=== PATIENT | female | born 1975 | race Caucasian/White ===

== ENCOUNTER 2018-06-07 10:30 | Inpatient (IN) | payer OTHER ==
[~2018-06-07] VITALS: Ht 152.4 cm; Wt 67.7 kg
[2018-06-13] VITALS (30 sets, daily range): BP systolic 120–154; BP diastolic 67–86; PULSE 76–111; RESP 9–79; Ht 152.4 cm; Wt 67.7 kg
[2018-06-13] MEDS ORDERED: SUCCINYLCHOLINE CHLORIDE 100 MG/5 ML SYG IV ONE (07:00)
[2018-06-13] MEDS ORDERED: CEFAZOLIN 2 GM/50 ML (PMX) 50 ML IVPB ONE (10:00)
[2018-06-13] MEDS ORDERED: LACTATED RINGER'S 1,000 ML IV* ONE (10:00)
[2018-06-13] MEDS ORDERED: CYCL10TA7 PO (10:50)
[2018-06-13] MEDS ORDERED: GABA100C14 PO (10:50)
[2018-06-13] MEDS ORDERED: HYDR-4011 PO (10:50)
[2018-06-13] MEDS ORDERED: POLYMYXIN/BACITRACIN 1L IRRIG ONE (11:23)
[2018-06-13] MEDS ORDERED: GELATIN SIZE 100 SPONGE ONE (11:29)
[2018-06-13] MEDS ORDERED: THROMBIN (BOVINE) 5,000 UNIT VIAL TP ONE (11:29)
[2018-06-13] MEDS ORDERED: SURGIFOAM POWDER 1 GM KIT ONE (11:29)
[2018-06-13] MEDS ORDERED: BUPIVACAINE 0.5%/EPI (SDV) 30 ML INJ ONE (11:30)
--- NOTE | 2018-06-13 12:02 | HPN ---
Date/Time of Note Date/Time of Note DATE: 06/13/18 TIME: 12:02 Interval H&P Admission Note Pt. seen H&P reviewed: No system changes BRIANDA NARVAEZ MD Jun 13, 2018 12:02
[2018-06-13] MEDS ORDERED: NALOXONE (0.4 MG/ML) INJ IV PRN (12:30)
[2018-06-13] MEDS ORDERED: CYCLOBENZAPRINE 10 MG TAB PO PRN (12:30)
[2018-06-13] MEDS ORDERED: ACETAMINOPHEN 325 MG TAB PO PRN (12:30)
[2018-06-13] MEDS: CEFAZOLIN 1 GM/50 ML (PMX) 50 ML IVPB SCH ×2 (12:30→21:41)
[2018-06-13] MEDS ORDERED: DIPHENHYDRAMINE 25 MG CAP PO PRN (12:30)
[2018-06-13] MEDS ORDERED: MAGNESIUM HYDROXIDE 30ML CUP PO PRN (12:30)
[2018-06-13] MEDS ORDERED: BISACODYL 10 MG SUPP PR PRN (12:30)
[2018-06-13] MEDS ORDERED: CEPASTAT LOZENGE MT PRN (12:30)
[2018-06-13] MEDS ORDERED: HYDROmorphONE 0.5 MG/0.5 ML SYG IV PRN (12:30)
[2018-06-13] MEDS ORDERED: HYDROmorphONE 0.2 MG/ML PCA IV SCH (12:30)
--- NOTE | 2018-06-13 12:34 | PREAC ---
Date/Time of Note Date/Time of Note DATE: 06/13/18 TIME: 12:33 Anesthesia Eval and Record Evaluation Time Pre-Procedure Interview DATE: 06/13/18 TIME: 12:33 Age 43 Sex female NPO: 8 hrs Preoperative diagnosis C-5C6 DISK HERNIATION Planned procedure C5C6 DISKECTOMY Past Medical History Past Medical History: Includes GI: GERD Heme: Anemia Surgery & Anesthesia Issues No known issue Meds Anticoagulation: No Beta Ramirez within 24 hr: No Reason Beta Ramirez not given: Pt. not on B-Ramirez Reported Medications Gabapentin* (Gabapentin*) 100 Mg Capsule, 100 MG PO QHS, #90 CAP 06/13/18 Cyclobenzaprine Hcl* (Cyclobenzaprine Hcl*) 10 Mg Tablet, 10 MG PO QHS, #60 TAB 06/13/18 Hydrocodone/Acetaminophen ([place] 5-325 Tablet) 1 Each Tablet, 1 EACH PO DAILY PRN for SEVERE PAIN LEVEL 7-10, TAB 06/13/18 Current Medications Potassium Chloride/Dextrose/ Sod Cl 1,000 ml @ 100 mls/hr Q10H IV ; Start 06/13/18 at 12:03 Acetaminophen/ Hydrocodone Bitart ([place] (10/325)) 1 tab Q4H PRN PO .PAIN 1-5; Start 06/14/18 at 09:30 Acetaminophen/ Hydrocodone Bitart ([place] (10/325)) 2 tab Q4H PRN PO .PAIN 6-10; Start 06/14/18 at 09:30 Hydromorphone HCl (Dilaudid) 0.2 mg Q1H PRN IV .BREAKTHROUGH PAIN; Start 06/13/18 at 12:30 Cefazolin Sodium 50 ml @ 100 mls/hr Q8H IVPB ; Start 06/13/18 at 12:30; Stop 06/14/18 at 04:59 Ondansetron HCl (Zofran Inj) 4 mg Q6H PRN IV NAUSEA/VOMITING; Start 06/13/18 at 12:30 Bisacodyl (Dulcolax Supp) 10 mg DAILY PRN [place] .CONSTIPATION; Start 06/13/18 at 12:30 Docusate Sodium (Colace) 100 mg BID PO ; Start 06/13/18 at 21:00 Magnesium Hydroxide (Milk Of Mag) 30 ml HS PRN PO .CONSTIPATION/DYSPEPSIA; Start 06/13/18 at 12:30 Acetaminophen (Tylenol Tab) 650 mg Q4H PRN PO CRA[place]ORD OR TEMP GREATER THAN 101.3F; Start 06/13/18 at 12:30 Cyclobenzaprine HCl (Flexeril) 10 mg TID PRN PO .MUSCLE SPASMS; Start 06/13/18 at 12:30 Phenol (Cepastat Lozenge) 1 lozenge PRN PRN [place] .SORE THROAT; Start 06/13/18 at 12:30 Diphenhydramine HCl (Benadryl) 25 mg Q6H PRN PO .ITCHING; Start 06/13/18 at 12 :30 Naloxone HCl (Narcan) 0.2 mg Q2M PRN IV .RR 8 BREATHS/MIN OR LESS; Start 06/13/18 at 12:30 Hydromorphone HCl (Dilaudid MANGLE ROLL OPERATOR) MANGLE ROLL OPERATOR to be started in PACU Q4PCA IV ; Start 06/13/18 at 12:30; Stop 06/14/18 at 10:00 Miscellaneous Information 1. Hold MANGLE ROLL OPERATOR at 1,000... MANGLE ROLL OPERATOR IV ; Start 06/13/18 at 12:30; Stop 06/14/18 at 10:00 Gabapentin (Neurontin) 300 mg TID PO ; Start 06/13/18 at 13:00 Meds reviewed: Yes Allergies Coded Allergies: ibuprofen (Verified Allergy, Unknown, rash, 01/21/16) Allergies Reviewed: Yes Labs/Studies Labs Reviewed: Reviewed by anesthesiologist test: Negative Pre-procedure Exam Last vitals Vital Signs Date Temp Pulse Resp B/P (MAP) Pulse Ox O2 O2 Flow FiO2 Time Delivery Rate 06/13/18 97.9 76 16 120/72 98 Room Air 11:18 (88) Airway: Adequate mouth opening, Adequate thyromental dist Mallampati: Mallampati III Teeth: Normal Lung: Normal Heart: Normal ASA Physical Status ASA physical status: 2 Emergency: None Pre-operative Attestations Prior to commencing anesthesia and surgery, the patient was re-evaluated, there was verification of: *The patient's identity *The results of appropriate recent lab work and preoperative vital signs *The above evaluation not changing prior to induction *Anesthetic plan, risk benefits, alternative and complications discussed with patient/family; questions answered; patient/family understands, accepts and wishes to proceed. ERNESTINE RIVERS DO Jun 13, 2018 12:34
[2018-06-13] MEDS ORDERED: LIDOCAINE 1% (MDV) 20 ML INJ ONE (12:37)
[2018-06-13] MEDS ORDERED: PROPOFOL 20 ML ONE (12:37)
[2018-06-13] MEDS ORDERED: MIDAZOLAM 1 MG/ML 2 ML INJ ONE (12:37)
[2018-06-13] MEDS ORDERED: ONDANSETRON 4 MG INJ ONE (12:49)
[2018-06-13] MEDS ORDERED: DEXAMETHASONE 4 MG/ML 5 ML INJ ONE (12:49)
[2018-06-13] MEDS ORDERED: CEFAZOLIN 1 GM INJ ONE (12:49)
[2018-06-13] MEDS: GABAPENTIN 300 MG CAP PO SCH ×2 (13:00→21:41)
[2018-06-13] MEDS ORDERED: ROCURONIUM 50 MG INJ ONE (13:04)
[2018-06-13] MEDS ORDERED: SUGAMMADEX SODIUM 200 MG/2 ML VIAL IV ONE (14:35)
--- NOTE | 2018-06-13 14:49 | SIPON ---
Date/Time of Note Date/Time of Note DATE: 06/13/18 TIME: 14:48 Operative Report Preoperative Diagnosis C5-6 disc herniation Postoperative Diagnosis C5-6 disc herniation Operation/Procedure Performed C5-6 disc arthroplasty Surgeon see signature line learning support assistant Guillermina Shahid Anesthesia: general Estimated blood loss: 10 - 50 ml's Transfusion Required none Specimen Disc Grafts/Implants The Prodisc Complications none BRIANDA NARVAEZ MD Jun 13, 2018 14:49
--- NOTE | 2018-06-13 14:57 | PAC ---
Date/Time of Note Date/Time of Note DATE: 06/13/18 TIME: 14:54 Post-Anesthesia Notes Post-Anesthesia Note Last documented vital signs Vital Signs Date Temp Pulse Resp B/P (MAP) Pulse Ox O2 O2 Flow FiO2 Time Delivery Rate 06/13/18 98 81 16 111/65 98 Room Air 1457 Activity: WNL Respiratory function: WNL Cardiovascular function: WNL Mental status: Baseline Pain reasonably controlled: Yes Hydration appropriate: Yes Nausea/Vomiting absent: Yes ERNESTINE RIVERS DO Jun 13, 2018 14:57
[2018-06-13] MEDS ORDERED: HYDROmorphONE 1 MG/5 ML IV SYRINGE IV ONE (15:01)
[2018-06-13] MEDS: HYDROmorphONE 1 MG/5 ML IV SYRINGE IV PRN ×6 (15:05→16:15)
[2018-06-13] MEDS ORDERED: METOCLOPRAMIDE 10 MG INJ IV PRN (15:30)
[2018-06-13] MEDS: ONDANSETRON 4 MG INJ IV PRN ×2 (15:38→15:56)
--- NOTE | 2018-06-13 15:55 | CONS ---
Assessment/Plan Assessment/Plan Assessment/Plan (Daily) Consult dict 1-Post op cx laminectomy with prior hx lumbar laminectomy 2-Hx anemia 3-Hx GERD Will follow Consultation Date/Type/Reason Admit Date/Time Jun 13, 2018 at 10:27 Date/Time of Note DATE: 06/13/18 TIME: 15:54 Past Medical History Home Meds Reported Medications Gabapentin* (Gabapentin*) 100 Mg Capsule, 100 MG PO QHS, #90 CAP 06/13/18 Cyclobenzaprine Hcl* (Cyclobenzaprine Hcl*) 10 Mg Tablet, 10 MG PO QHS, #60 TAB 06/13/18 Hydrocodone/Acetaminophen ([place] 5-325 Tablet) 1 Each Tablet, 1 EACH PO DAILY PRN for SEVERE PAIN LEVEL 7-10, TAB 06/13/18 Medications Current Medications Potassium Chloride/Dextrose/ Sod Cl 1,000 ml @ 100 mls/hr Q10H IV ; Start 06/13/18 at 12:03 Acetaminophen/ Hydrocodone Bitart ([place] (10/325)) 1 tab Q4H PRN PO .PAIN 1-5; Start 06/14/18 at 09:30 Acetaminophen/ Hydrocodone Bitart ([place] (10/325)) 2 tab Q4H PRN PO .PAIN 6-10; Start 06/14/18 at 09:30 Hydromorphone HCl (Dilaudid) 0.2 mg Q1H PRN IV .BREAKTHROUGH PAIN; Start 06/13/18 at 12:30 Cefazolin Sodium 50 ml @ 100 mls/hr Q8H IVPB ; Start 06/13/18 at 12:30; Stop 06/14/18 at 04:59 Ondansetron HCl (Zofran Inj) 4 mg Q6H PRN IV NAUSEA/VOMITING; Start 06/13/18 at 12:30 Bisacodyl (Dulcolax Supp) 10 mg DAILY PRN [place] .CONSTIPATION; Start 06/13/18 at 12:30 Docusate Sodium (Colace) 100 mg BID PO ; Start 06/13/18 at 21:00 Magnesium Hydroxide (Milk Of Mag) 30 ml HS PRN PO .CONSTIPATION/DYSPEPSIA; Start 06/13/18 at 12:30 Acetaminophen (Tylenol Tab) 650 mg Q4H PRN PO [place]RAWFORD OR TEMP GREATER THAN 101.3F; Start 06/13/18 at 12:30 Cyclobenzaprine HCl (Flexeril) 10 mg TID PRN PO .MUSCLE SPASMS; Start 06/13/18 at 12:30 Phenol (Cepastat Lozenge) 1 lozenge PRN PRN [place] .SORE THROAT; Start 06/13/18 at 12:30 Diphenhydramine HCl (Benadryl) 25 mg Q6H PRN PO .ITCHING; Start 06/13/18 at 12:30 Naloxone HCl (Narcan) 0.2 mg Q2M PRN IV .RR 8 BREATHS/MIN OR LESS; Start 06/13/18 at 12:30 Hydromorphone HCl (Dilaudid CHICKEN HANGER) CHICKEN HANGER to be started in PACU Q4PCA IV Last administered on 06/13/18at 15:17; Admin Dose 6 MG; Start 06/13/18 at 12:30; Stop 06/14/18 at 10:00 Miscellaneous Information 1. Hold CHICKEN HANGER at 1,000... CHICKEN HANGER IV ; Start 06/13/18 at 12:30; Stop 06/14/18 at 10:00 Gabapentin (Neurontin) 300 mg TID PO ; Start 06/13/18 at 13:00 Hydromorphone HCl (Dilaudid) 0.2 mg PACU PRN IV MILD PAIN 1-3 Last administered on 06/13/18at 15:22; Admin Dose 0.2 MG; Start 06/13/18 at 13:00; Stop 06/13/18 at 19:00 Hydromorphone HCl (Dilaudid) 0.4 mg PACU PRN IV MOD PAIN 4-6 Last administered on 06/13/18at 15:41; Admin Dose 0.4 MG; Start 06/13/18 at 13:00; Stop 06/13/18 at 19:00 Ondansetron HCl (Zofran Inj) 4 mg PACU ORDER PRN IV NAUSEA/VOMITING Last administered on 06/13/18at 15:38; Admin Dose 4 MG; Start 06/13/18 at 15:30; Stop 06/13/18 at 22:00 Metoclopramide HCl (Reglan) 10 mg PACU ORDER PRN IV NAUSEA/VOMITING; Start 06/13/18 at 15:30; Stop 06/13/18 at 22:00 Allergies: Coded Allergies: ibuprofen (Verified Allergy, Unknown, rash, 01/21/16) Social History Smoking Status: Never smoker Exam/Review of Systems Exam Vitals Vital Signs Date Temp Pulse Resp B/P (MAP) Pulse Ox O2 O2 Flow FiO2 Time Delivery Rate 06/13/18 98.0 14:54 06/13/18 76 16 120/72 98 Room Air 11:18 (88) Medications Medication Current Medications Potassium Chloride/Dextrose/ Sod Cl 1,000 ml @ 100 mls/hr Q10H IV ; Start 06/13/18 at 12:03 Acetaminophen/ Hydrocodone Bitart ([place] ()) 1 tab Q4H PRN PO .PAIN 1-5; Start 06/14/18 at 09:30 Acetaminophen/ Hydrocodone Bitart ([place] ()) 2 tab Q4H PRN PO .PAIN 6-10; Start 06/14/18 at 09:30 Hydromorphone HCl (Dilaudid) 0.2 mg Q1H PRN IV .BREAKTHROUGH PAIN; Start 06/13/18 at 12:30 Cefazolin Sodium 50 ml @ 100 mls/hr Q8H IVPB ; Start 06/13/18 at 12:30; Stop 06/14/18 at 04:59 Ondansetron HCl (Zofran Inj) 4 mg Q6H PRN IV NAUSEA/VOMITING; Start 06/13/18 at 12:30 Bisacodyl (Dulcolax Supp) 10 mg DAILY PRN [place] .CONSTIPATION; Start 06/13/18 at 12:30 Docusate Sodium (Colace) 100 mg BID PO ; Start 06/13/18 at 21:00 Magnesium Hydroxide (Milk Of Mag) 30 ml HS PRN PO .CONSTIPATION/DYSPEPSIA; Start 06/13/18 at 12:30 Acetaminophen (Tylenol Tab) 650 mg Q4H PRN PO [place] OR TEMP GREATER THAN 101.3F; Start 06/13/18 at 12:30 Cyclobenzaprine HCl (Flexeril) 10 mg TID PRN PO .MUSCLE SPASMS; Start 06/13/18 at 12:30 Phenol (Cepastat Lozenge) 1 lozenge PRN PRN [place] .SORE THROAT; Start 06/13/18 at 12:30 Diphenhydramine HCl (Benadryl) 25 mg Q6H PRN PO .ITCHING; Start 06/13/18 at 12:30 Naloxone HCl (Narcan) 0.2 mg Q2M PRN IV .RR 8 BREATHS/MIN OR LESS; Start 06/13/18 at 12:30 Hydromorphone HCl (Dilaudid CHICKEN HANGER) CHICKEN HANGER to be started in PACU Q4PCA IV Last administered on 06/13/18 15:17; Admin Dose 6 MG; Start 06/13/18 at 12:30; Stop 06/14/18 at 10:00 Miscellaneous Information 1. Hold CHICKEN HANGER at 1,000... CHICKEN HANGER IV ; Start 06/13/18 at 12:30; Stop 06/14/18 at 10:00 Gabapentin (Neurontin) 300 mg TID PO ; Start 06/13/18 at 13:00 Hydromorphone HCl (Dilaudid) 0.2 mg PACU PRN IV MILD PAIN 1-3 Last administered on 06/13/18 15:22; Admin Dose 0.2 MG; Start 06/13/18 at 13:00; Stop 06/13/18 at 19:00 Hydromorphone HCl (Dilaudid) 0.4 mg PACU PRN IV MOD PAIN 4-6 Last administered on 06/13/18 15:41; Admin Dose 0.4 MG; Start 06/13/18 at 13:00; Stop 06/13/18 at 19:00 Ondansetron HCl (Zofran Inj) 4 mg PACU ORDER PRN IV NAUSEA/VOMITING Last adm inistered on 06/13/18 15:38; Admin Dose 4 MG; Start 06/13/18 at 15:30; Stop 06/13/18 at 22:00 Metoclopramide HCl (Reglan) 10 mg PACU ORDER PRN IV NAUSEA/VOMITING; Start 06/13/18 at 15:30; Stop 06/13/18 at 22:00 LG KING MD Jun 13, 2018 15:55
--- NOTE | 2018-06-13 15:55 | OPR ---
DATE OF OPERATION: 06/13/2018 PREOPERATIVE DIAGNOSIS: C5-C6 disk herniation with radiculopathy. POSTOPERATIVE DIAGNOSIS: C5-C6 disk herniation with radiculopathy. PROCEDURE: 1. C5-6 anterior cervical decompression with placement of total disk arthroplasty. 2. Use of operative microscope. 3. Use of C-arm fluoroscopy with interpretation without radiologist present. 4. Intraoperative neuromonitoring. IMPLANT: Synthes large 5 mm ProDisc cervical. PRIMARY SURGEON: Mahendra Patino MD ROUSTABOUT SUPERVISOR: Maryellen Grey PA-C NEED FOR STUDIO COUCH FRAME BUILDER: During this spinal surgical procedure, my data analysis assistant was used to retract and protect the spinal nerves and dural sac. My data analysis assistant also employed the suction catheters to ev acuate blood from the surgical field to improve visualization of the neural structures. The assistan t was medically necessary to facilitate the completion of the surgery in a safe and expeditious [facility] r. [facility] regulations, as well as hospital bylaws, preclude the use of non-licensed [facility] care personnel, such as operating room technicians, to perform these functions. FINDINGS: Neuromonitoring at the start of the case revealed left C5 amplitude down 50%, right C5 caroline n 20%, left C6 down 30%, right C6 down 20%. At the end of the case, nerve signals returned to normal . ESTIMATED BLOOD LOSS: 30 mL DRAINS: None. SPECIMEN: C5-6 disk. COMPLICATIONS OF PROCEDURE: None. ANESTHESIOLOGIST: Rowdy Castro DO TYPE OF ANESTHESIA: General. INDICATION FOR PROCEDURE: This is a 43-year-old female with cervical radiculopathy in the setting of herniation at the C5-C6 level. She failed nonoperative measures. Therefore, it was recommend that she undergo the above procedure. Preoperatively, we discussed risks, benefits and alternatives. She understood and wished to proceed. DESCRIPTION OF PROCEDURE IN DETAIL: The patient was identified in the preoperative holding area, giv en Ancef antibiotic, taken to the operating room where she was successfully placed under general anes thesia. Neuromonitoring leads were placed. Sequential compression devices were applied. Remote int raoperative neuromonitoring was performed by Dr. Scott from 12:00 until 2:37 to include SSEP, MEP and EMG, performed by [employer]. Cut time was 1:17. The patient was placed in the operating room table in the supine position. Towel rolls were placed behind the neck and the neck was extende d. Neck was prepped and draped in the usual sterile fashion. Left-sided neck incision was made. Platysma was incised in line with the skin incision. I then iden tified the interval between the sternocleidomastoid and strap muscles and identified the anterior spi ne. Spinal needle was placed and lateral localizing films obtained to confirm the correct level. On ce this was confirmed, the microscope was brought in. The longus colli musculature was subperiosteal ly dissected. Self-retaining retractors were placed. Anesthesiologist deflated and reinflated the c uff. [place] pins were placed. Annulotomy was performed. Radical diskectomy was performed. I decom pressed the spinal cord and neural foramina bilaterally. Once this was done, I placed various trials and chose the appropriate graft height. I took the trial and made the keel cuts. Once this was don e, I took the final total disk arthroplasty implant and impacted this into the appropriate position. I then removed the [place] pins and placed bone wax into the holes. Hemostasis was achieved. The wound was irrigated. Wound was dry and, therefore, I elected not to place a drain. Microscope w as taken off the field. I took final AP and lateral images and I was happy with the placement of the hardware. I then closed the platysma with a running 2-0 Vicryl stitch and a 3-0 Vicryl subcutaneous closure for the skin. Dermabond was then applied. The patient was then awakened from anesthesia an d taken to the recovery room in stable condition. Lap, sponge and instrument counts were correct x2. There were no apparent complications during the procedure. PLAN: The patient will be admitted to the orthopedic crain for routine postoperative care to include pain control, neurovascular checks, antibiotics and physical therapy. Dictated By: MAHENDRA DAVILA/ROSALVA Conf#: [id number] DID#: [id number]
--- NOTE | 2018-06-13 16:17 | CONS ---
DATE OF ADMISSION: 06/13/2018 DATE OF CONSULTATION: 06/13/2018 TYPE OF CONSULTATION: Medical postop. Thank you very much for allowing me to evaluate this 43-year-old female who just underwent C5-C6 ante rior decompression and diskectomy earlier today. HISTORICAL EVENTS: As you well know, this patient has had a long history of neck pain and radicular arm pain bilaterally. A trial of an epidural injection was deferred by her insurance company. Becau se of continued pain, she elected to ultimately proceed with surgery, which was initially scheduled i n 08/2017 but because of anemia was delayed. Importantly, she also has low back pain with L4-L5-S1 a ntecedent diskectomy with improvement in her left leg pain. PAST MEDICAL HISTORY: Unrevealing. No history of diabetes, heart disease or hypertension. SOCIAL HISTORY: She does not smoke, does not drink. MEDICATIONS: 1. Prior to admission include Flexeril p.r.n. 2. [place]. 3. Gabapentin 300 t.i.d. and herbal medicine. PHYSICAL EXAMINATION: GENERAL: Comfortable appearing female in no acute distress. VITAL SIGNS: BP 128/80, pulse 72, respirations were 18. She was afebrile. EYES: Extraocular muscles were full. NOSE, MOUTH, AND THROAT: Normal. NECK: Supple. Neck in a soft collar. There was no jugular venous distention, thyroid enlargement. LUNGS: Clear. HEART: Rhythm regular, no murmur. No third or fourth sound. ABDOMEN: Nontender. Liver and spleen were not palpable. No mass or tenderness were noted. EXTREMITIES: No edema. Calves nontender. IMPRESSION: 1. Stable post-cervical laminectomy. 2. History of gastroesophageal reflux disease. Will observe for signs and symptoms of the same. 3. Will evaluate daily for signs and symptoms of thromboembolic disease. Dictated By: LG KING MD MR/NTS Conf#: [id number] DID#: [id number] CC: BRIANDA NARVAEZ MD;*EndCC*
[2018-06-13] MEDS: D5W-0.45 NACL + KCL 20 MEQ 1,000 ML IV SCH ×2 (18:59→22:03)
[2018-06-13] MEDS: DOCUSATE SODIUM 100 MG CAP PO SCH (21:41)
[2018-06-14] MEDS: ONDANSETRON 4 MG INJ IV PRN ×2 (00:37→05:59)
[2018-06-14 01:04] VITALS: BP 139/81; PULSE 86; RESP 18
[2018-06-14] MEDS: CEFAZOLIN 1 GM/50 ML (PMX) 50 ML IVPB SCH ×2 (04:48→12:51)
[2018-06-14 04:53] VITALS: BP 120/68; PULSE 88; RESP 18
[2018-06-14 07:28] VITALS: BP 131/62; PULSE 82; RESP 18
--- NOTE | 2018-06-14 08:49 | CONS ---
Assessment/Plan Assessment/Plan Assessment/Plan (Daily) 1. Post op cx spine surgery stable 2. N and V, sec to anesthesia and pain meds, rev with rn, meds to be modified, chg to po 3. Elev wbc, u.a and cult ordered, may be related to steroids periop Consultation Date/Type/Reason Admit Date/Time Jun 13, 2018 at 10:27 Initial Consult Date Date/Time of Note DATE: 06/14/18 TIME: 08:47 Detailed Summary Respiratory: No cough, No shortness of breath Cardiovascular: No chest pain Gastrointestinal: nausea (and vomiting last night and this am); No pain Genitourinary: other (meek was removed) Musculoskeletal: neck pain (mild) Neurologic: headache Exam/Review of Systems Exam Vitals Vital Signs Date Temp Pulse Resp B/P (MAP) Pulse Ox O2 O2 Flow FiO2 Time Delivery Rate 06/14/18 Nasal 2.0 07:35 Cannula 06/14/18 98.2 82 18 131/62 96 07:28 (85) Intake and Output 06/13/18 06/13/18 06/14/18 1515:00 23:00 07:00 IntakeIntake Total 1000 ml 250 ml 50 ml OutputOutput Total 25 ml 1100 ml 950 ml BalanceBalance 975 ml -850 ml -900 ml Neck: No jvd Respiratory: clear to auscultation Cardiovascular: regular rate and rhythm Gastrointestinal: soft Extremities: No edema, No tenderness Results Result Diagram: 06/14/18 0433 06/14/18 0433 Results 24hrs Laboratory Tests Test 06/14/18 04:33 06/14/18 07:47 White Blood Count 17.9 #H Red Blood Count 3.96 L Hemoglobin 11.2 #L Hematocrit 33.7 #L Mean Corpuscular Volume 85.1 # Mean Corpuscular Hemoglobin 28.3 #L Mean Corpuscular Hemoglobin Concent 33.2 Red Cell Distribution Width 14.1 # Platelet Count 358 Mean Platelet Volume 11.0 H Immature Granulocytes % 0.500 H Neutrophils % 89.6 H Lymphocytes % 6.6 L Monocytes % 3.2 Eosinophils % 0.0 Basophils % 0.1 Nucleated Red Blood Cells % 0.0 Immature Granulocytes # 0.090 H Neutrophils # 16.1 H Lymphocytes # 1.2 Monocytes # 0.6 Eosinophils # 0.0 Basophils # 0.0 Nucleated Red Blood Cells # 0.0 Sodium Level 139 Potassium Level 4.3 Chloride Level 103 Carbon Dioxide Level 24 Anion Gap 12 Blood Urea Nitrogen 5 L Creatinine 0.35 L Est Glomerular Filtrat Rate mL/min > 60 Glucose Level 165 Calcium Level 9.0 Magnesium Level 2.0 Iron Level 38 Total Iron Binding Capacity 355 Percent Iron Saturation 11 L Lab Scanned Report REFERENCE LAB Medications Medication Current Medications Potassium Chloride/Dextrose/ Sod Cl 1,000 ml @ 100 mls/hr Q10H IV Last administered on 06/13/18at 18:59; Admin Dose 100 MLS/HR; Start 06/13/18 at 12:03 Acetaminophen/ Hydrocodone Bitart ([place] (325)) 1 tab Q4H PRN PO .PAIN 1-5; Start 06/14/18 at 09:30 Acetaminophen/ Hydrocodone Bitart ([place] (10325)) 2 tab Q4H PRN PO .PAIN 6-10; Start 06/14/18 at 09:30 Hydromorphone HCl (Dilaudid) 0.2 mg Q1H PRN IV .BREAKTHROUGH PAIN; Start 06/13/18 at 12:30 Ondansetron HCl (Zofran Inj) 4 mg Q6H PRN IV NAUSEA/VOMITING Last administered on 06/14/18at 05:59; Admin Dose 4 MG; Start 06/13/18 at 12:30 Bisacodyl (Dulcolax Supp) 10 mg DAILY PRN [place] .CONSTIPATION; Start 06/13/18 at 12:30 Docusate Sodium (Colace) 100 mg BID PO Last administered on 06/13/18at 21:41; Admin Dose 100 MG; Start 06/13/18 at 21:00 Magnesium Hydroxide (Milk Of Mag) 30 ml HS PRN PO .CONSTIPATION/DYSPEPSIA; Sta rt 06/13/18 at 12:30 Acetaminophen (Tylenol Tab) 650 mg Q4H PRN PO CRAWFORD OR TEMP GREATER THAN 101.3F; Start 06/13/18 at 12:30 Cyclobenzaprine HCl (Flexeril) 10 mg TID PRN PO .MUSCLE SPASMS; Start 06/13/18 at 12:30 Phenol (Cepastat Lozenge) 1 lozenge PRN PRN [place] .SORE THROAT; Start 06/13/18 at 12:30 Diphenhydramine HCl (Benadryl) 25 mg Q6H PRN PO .ITCHING; Start 06/13/18 at 12:30 Naloxone HCl (Narcan) 0.2 mg Q2M PRN IV .RR 8 BREATHS/MIN OR LESS; Start 06/13/18 at 12:30 Hydromorphone HCl (Dilaudid CONTACT LENS EDGE BUFFER) CONTACT LENS EDGE BUFFER to be started in PACU Q4PCA IV Last administered on 06/13/18at 15:17; Admin Dose 6 MG; Start 06/13/18 at 12:30; Stop 06/14/18 at 10:00 Miscellaneous Information 1. Hold CONTACT LENS EDGE BUFFER at 1,000... CONTACT LENS EDGE BUFFER IV ; Start 06/13/18 at 12:30; Stop 06/14/18 at 10:00 Gabapentin (Neurontin) 300 mg TID PO Last administered on 06/13/18at 21:41; Admin Dose 300 MG; Start 06/13/18 at 13:00 Cefazolin Sodium 50 ml @ 100 mls/hr Q8H IVPB Last administered on 06/14/18at 04:48; Admin Dose 100 MLS/HR; Start 06/14/18 at 04:30; Stop 06/14/18 at 12:59 LG KING MD Jun 14, 2018 08:49
[2018-06-14] MEDS: METOCLOPRAMIDE 10 MG INJ IV SCH ×4 (09:18→23:47)
[2018-06-14] MEDS: D5W-0.45 NACL + KCL 20 MEQ 1,000 ML IV SCH ×2 (09:19→18:03)
[2018-06-14] MEDS: HYDROCODONE/APAP (10/325) TAB PO PRN ×3 (09:21→20:37)
[2018-06-14] MEDS: GABAPENTIN 300 MG CAP PO SCH ×3 (09:21→20:37)
[2018-06-14] MEDS: DOCUSATE SODIUM 100 MG CAP PO SCH ×2 (09:21→20:37)
[2018-06-14] MEDS ORDERED: HYDROCODONE/APAP (10/325) TAB PO PRN (09:30)
--- NOTE | 2018-06-14 11:31 | PN ---
Date/Time of Note Date/Time of Note DATE: 06/14/18 TIME: 11:30 Assessment/Plan Lines/Catheters IV Catheter Type (from Nrsg): Peripheral IV [place] in Place (from Nrsg): No Assessment/Plan Assessment/Plan Postop day 1. Not yet stable for discharge. Nausea improved with ADOPTION AGENT discontinuation. Continue with physical therapy. Subjective 24 Hr Interval Summary Patient has discomfort with swallowing. Exam/Review of Systems Vital Signs Vitals Vital Signs Date Temp Pulse Resp B/P (MAP) Pulse Ox O2 O2 Flow FiO2 Time Delivery Rate 06/14/18 Nasal 2.0 07:35 Cannula 06/14/18 98.2 82 18 131/62 96 07:28 (85) Intake and Output 06/13/18 06/13/18 06/14/18 1414:59 22:59 06:59 IntakeIntake Total 1000 ml 250 ml 50 ml OutputOutput Total 25 ml 1100 ml 950 ml BalanceBalance 975 ml -850 ml -900 ml Exam Free Text/Dictation Neuro intact Results Result Diagram: 06/14/18 0433 06/14/18 0433 BRIANDA NARVAEZ MD Jun 14, 2018 11:30
[2018-06-14] MEDS ORDERED: SOD FERRIC GLUC COMPLX 125 MG in SOD CHLORIDE 0.9% 100 ML IVPB SCH (13:00)
[2018-06-14 15:10] VITALS: BP 128/60; PULSE 92; RESP 19
[2018-06-14] MEDS: PANTOPRAZOLE 40 MG INJ IV SCH (18:21)
[2018-06-14 20:05] VITALS: BP 129/74; PULSE 64; RESP 18
[2018-06-15 02:33] VITALS: BP 122/66; PULSE 67; RESP 18
[2018-06-15] MEDS: D5W-0.45 NACL + KCL 20 MEQ 1,000 ML IV SCH (04:03)
[2018-06-15] MEDS: PANTOPRAZOLE 40 MG INJ IV SCH (05:45)
[2018-06-15] MEDS: METOCLOPRAMIDE 10 MG INJ IV SCH (05:45)
[2018-06-15 07:55] VITALS: BP 124/70; PULSE 69; RESP 17
--- NOTE | 2018-06-15 08:28 | PN ---
Date/Time of Note Date/Time of Note DATE: 06/15/18 TIME: 08:25 Assessment/Plan VTE Prophylaxis Risk score (from Ns)>0 risk: 3 SCD applied (from Ns): Yes Pharmacological prophylaxis: NA/contraindicated, other (post op spine surgery) Pharm contraindication: surgical contra Lines/Catheters IV Catheter Type (from [facility]): Peripheral IV Urinary Cath still in place: No Assessment/Plan Hospital Course 1. Post op cx laminectomy with residual left arm radic pain 2. N and V have resolved will dc reglan and change protonix to po 3. P is low, will replete 4. Can dc if ok with ortho Result Diagram: 06/15/1843606/15/18436 Results 24hrs Laboratory Tests Test 06/14/18 09:30 06/15/18 04:37 Urine Color STRAW Urine Clarity CLEAR Urine pH 6.0 Urine Specific [place] 1.012 Urine Ketones NEGATIVE Urine Nitrite NEGATIVE Urine Bilirubin NEGATIVE Urine Urobilinogen NEGATIVE Urine Leukocyte Esterase NEGATIVE Urine Hemoglobin NEGATIVE Urine Glucose 1+ H Urine Total Protein NEGATIVE White Blood Count 16.7 H Red Blood Count 3.67 L Hemoglobin 10.3 L Hematocrit 31.1 L Mean Corpuscular Volume 84.7 Mean Corpuscular Hemoglobin 28.1 L Mean Corpuscular Hemoglobin Concent 33.1 Red Cell Distribution Width 14.5 Platelet Count 336 Mean Platelet Volume 11.1 H Immature Granulocytes % 0.500 H Neutrophils % 77.0 Lymphocytes % 16.6 Monocytes % 5.4 Eosinophils % 0.1 Basophils % 0.4 Nucleated Red Blood Cells % 0.0 Immature Granulocytes # 0.080 H Neutrophils # 12.8 H Lymphocytes # 2.8 Monocytes # 0.9 Eosinophils # 0.0 Basophils # 0.1 Nucleated Red Blood Cells # 0.0 Sodium Level 140 Potassium Level 3.9 Chloride Level 105 Carbon Dioxide Level 28 Anion Gap 7 Blood Urea Nitrogen 9 Creatinine 0.45 Est Glomerular Filtrat Rate mL/min > 60 Glucose Level 99 # Calcium Level 8.5 Phosphorus Level 2.4 L Magnesium Level 2.2 Subjective 24 Hr Interval Summary Cardiovascular: No chest pain Gastrointestinal: No nausea, No vomiting Genitourinary: no complaints Musculoskeletal: neck pain (with left arm radic pain) Exam/Review of Systems Exam Vitals Vital Signs Date Temp Pulse Resp B/P (MAP) Pulse Ox O2 O2 Flow FiO2 Time Delivery Rate 3/6/19 97.6 69 17 124/70 94 07:55 (88) 06/14/18 Nasal 2.0 07:35 Cannula Intake and Output 06/14/18 06/14/18 06/15/18 1515:00 23:00 07:00 IntakeIntake Total 1050 ml 1660 ml BalanceBalance 1050 ml 1660 ml Neck: No jvd Respiratory: clear to auscultation Cardiovascular: regular rate and rhythm Gastrointestinal: soft Extremities: No edema, No tenderness Results Results 24hrs Laboratory Tests Test 06/14/18 09:30 06/15/18 04:37 Urine Color STRAW Urine Clarity CLEAR Urine pH 6.0 Urine Specific [place] 1.012 Urine Ketones NEGATIVE Urine Nitrite NEGATIVE Urine Bilirubin NEGATIVE Urine Urobilinogen NEGATIVE Urine Leukocyte Esterase NEGATIVE Urine Hemoglobin NEGATIVE Urine Glucose 1+ H Urine Total Protein NEGATIVE White Blood Count 16.7 H Red Blood Count 3.67 L Hemoglobin 10.3 L Hematocrit 31.1 L Mean Corpuscular Volume 84.7 Mean Corpuscular Hemoglobin 28.1 L Mean Corpuscular Hemoglobin Concent 33.1 Red Cell Distribution Width 14.5 Platelet Count 336 Mean Platelet Volume 11.1 H Immature Granulocytes % 0.500 H Neutrophils % 77.0 Lymphocytes % 16.6 Monocytes % 5.4 Eosinophils % 0.1 Basophils % 0.4 Nucleated Red Blood Cells % 0.0 Immature Granulocytes # 0.080 H Neutrophils # 12.8 H Lymphocytes # 2.8 Monocytes # 0.9 Eosinophils # 0.0 Basophils # 0.1 Nucleated Red Blood Cells # 0.0 Sodium Level 140 Potassium Level 3.9 Chloride Level 105 Carbon Dioxide Level 28 Anion Gap 7 Blood Urea Nitrogen 9 Creatinine 0.45 Est Glomerular Filtrat Rate mL/min > 60 Glucose Level 99 # Calcium Level 8.5 Phosphorus Level 2.4 L Magnesium Level 2.2 Medications Medication Current Medications Potassium Chloride/Dextrose/ Sod Cl 1,000 ml @ 100 mls/hr Q10H IV Last administered on 06/14/18at 09:19; Admin Dose 100 MLS/HR; Start 06/13/18 at 12:03 Acetaminophen/ Hydrocodone Bitart ([place] (10/325)) 1 tab Q4H PRN PO .PAIN 1-5 Last administered on 06/14/18at 20:37; Admin Dose 1 TAB; Start 06/14/18 at 09:30 Acetaminophen/ Hydrocodone Bitart ([place] (10)) 2 tab Q4H PRN PO .PAIN 6-10; Start 06/14/18 at 09:30 Hydromorphone HCl (Dilaudid) 0.2 mg Q1H PRN IV .BREAKTHROUGH PAIN; Start 06/13/18 at 12:30 Ondansetron HCl (Zofran Inj) 4 mg Q6H PRN IV NAUSEA/VOMITING Last administered on 06/14/18at 05:59; Admin Dose 4 MG; Start 06/13/18 at 12:30 Bisacodyl (Dulcolax Supp) 10 mg DAILY PRN [place] .CONSTIPATION; Start 06/13/18 at 12:30 Docusate Sodium (Colace) 100 mg BID PO Last administered on 06/14/18at 20:37; Admin Dose 100 MG; Start 06/13/18 at 21:00 Magnesium Hydroxide (Milk Of Mag) 30 ml HS PRN PO .CONSTIPATION/DYSPEPSIA; Start 06/13/18 at 12:30 Acetaminophen (Tylenol Tab) 650 mg Q4H PRN PO CRAWFORD OR TEMP GREATER THAN 101.3F; Start 06/13/18 at 12:30 Cyclobenzaprine HCl (Flexeril) 10 mg TID PRN PO .MUSCLE SPASMS; Start 06/13/18 at 12:30 Phenol (Cepastat Lozenge) 1 lozenge PRN PRN [place] .SORE THROAT; Start 06/13/18 at 12:30 Diphenhydramine HCl (Benadryl) 25 mg Q6H PRN PO .ITCHING; Start 06/13/18 at 12:30 Naloxone HCl (Narcan) 0.2 mg Q2M PRN IV .RR 8 BREATHS/MIN OR LESS; Start 06/13/18 at 12:30 Gabapentin (Neurontin) 300 mg TID PO Last administered on 06/14/18at 20:37; Admin Dose 300 MG; Start 06/13/18 at 13:00 Ferric Sodium Gluconate Complex 125 mg/Sodium Chloride 110 ml @ 110 mls/hr DAILY@1300 IVPB Last administered on 06/14/18at 14:24; Admin Dose 110 MLS/HR; Start 06/14/18 at 13:00; Stop 3/9/19 at 13:59 Metoclopramide HCl (Reglan) 5 mg Q6 IV Last administered on 06/15/18at 05:45; Admin Dose 5 MG; Start 06/14/18 at 09:00 Pantoprazole (Protonix Iv) 40 mg BID@06,18 IV Last administered on 06/15/18at 05:45; Admin Dose 40 MG; Start 06/14/18 at 18:00 LG KING MD Jun 15, 2018 08:28
[2018-06-15] MEDS: GABAPENTIN 300 MG CAP PO SCH (09:46)
[2018-06-15] MEDS: DOCUSATE SODIUM 100 MG CAP PO SCH (09:46)
[2018-06-15] MEDS: HYDROCODONE/APAP (10/325) TAB PO PRN (09:48)
[2018-06-15] MEDS ORDERED: POTASSIUM PHOSPHATE 15 MM in SOD CHLORIDE 0.9% 250 ML IVPB ONE (10:00)
--- NOTE | 2018-06-15 11:42 | DS ---
Date/Time of Note Date/Time of Note DATE: 06/15/18 TIME: 11:41 Discharge Summary Admission/Discharge Info Admit Date/Time Jun 13, 2018 at 10:27 Discharge Date/Time June 14 Discharge Diagnosis Cervical disc replacement Patient Condition: Fair Procedures Cervical disc replacement Hospital Course Patient was admitted to the orthopedic crain after undergoing the above procedure. Her postoperative course was uncomplicated. By postoperative day 2 she was deemed stable for discharge with follow-up arranged with the undersigned Home Meds Reported Medications Gabapentin* (Gabapentin*) 100 Mg Capsule, 100 MG PO QHS, #90 CAP 06/13/18 Cyclobenzaprine Hcl* (Cyclobenzaprine Hcl*) 10 Mg Tablet, 10 MG PO QHS, #60 TAB 06/13/18 Hydrocodone/Acetaminophen ([place] 5-325 Tablet) 1 Each Tablet, 1 EACH PO DAILY PRN for SEVERE PAIN LEVEL 7-10, TAB 06/13/18 Primary Care Provider Not On Staff Doctor Pending Labs Laboratory Tests Test 06/15/18 04:37 White Blood Count 16.7 10^3/ul (4.8-10.8) Red Blood Count 3.67 10^6/ul (4.20-5.40) Hemoglobin 10.3 g/dl (12.0-16.0) Hematocrit 31.1 % (37.0-47.0) Mean Corpuscular Volume 84.7 fl (82.0-101.0) Mean Corpuscular Hemoglobin 28.1 pg (29.0-33.0) Mean Corpuscular Hemoglobin Concent 33.1 g/dl (32.0-37.0) Red Cell Distribution Width 14.5 % (11.5-14.5) Platelet Count 336 10^3/UL (140-415) Mean Platelet Volume 11.1 fl (7.4-10.4) Immature Granulocytes % 0.500 % (0.001-0.429) Neutrophils % 77.0 % (39.0-77.0) Lymphocytes % 16.6 % (15.0-51.0) Monocytes % 5.4 % (0.0-11.0) Eosinophils % 0.1 % (0.0-7.0) Basophils % 0.4 % (0.0-2.0) Nucleated Red Blood Cells % 0.0 /100WBC (0.0-0.0) Immature Granulocytes # 0.080 10^3/ul (0.0-0.031) Neutrophils # 12.8 10^3/ul (1.6-7.5) Lymphocytes # 2.8 10^3/ul (0.8-2.9) Monocytes # 0.9 10^3/ul (0.3-0.9) Eosinophils # 0.0 10^3/ul (0.0-0.5) Basophils # 0.1 10^3/ul (0.0-0.1) Nucleated Red Blood Cells # 0.0 10^3/ul (0.0-0.0) Sodium Level 140 mmol/L (135-144) Potassium Level 3.9 mmol/L (3.5-5.1) Chloride Level 105 mmol/L (97-110) Carbon Dioxide Level 28 mmol/L (21-31) Anion Gap 7 (5-13) Blood Urea Nitrogen 9 mg/dl (7-20) Creatinine 0.45 mg/dl (0.44-1.00) Est Glomerular Filtrat Rate mL/min > 60 mL/min (>60) Glucose Level 99 mg/dl (70-220) Calcium Level 8.5 mg/dl (8.4-10.2) Phosphorus Level 2.4 mg/dl (2.5-4.9) Magnesium Level 2.2 mg/dl (1.7-2.5) BRIANDA NARVAEZ MD Jun 15, 2018 11:42
[2018-06-16] MEDS ORDERED: PANTOPRAZOLE (EC) 40 MG TAB PO SCH (06:00)
== END 2018-06-15 13:23 | disposition home or self-care (01) | DRG 518 ==
LOC: REC 06-13 10:27 → EDBD 06-13 10:27 → MS1 06-13 16:48
PROVIDERS: ADMIT Specialist; ATTEND Specialist
PROC: 4A11X4G Monitoring of Peripheral Nervous Electrical Activity, Intraoperative, External Approach (ICD-10-PCS; 2018-06-13)
PROC: 0RR30JZ Replacement of Cervical Vertebral Disc with Synthetic Substitute, Open Approach (ICD-10-PCS; principal; 2018-06-13 12:00)
DX: M48.02 Spinal stenosis, cervical region (principal); M50.122 Cervical disc disorder at C5-C6 level with radiculopathy; K21.9 Gastro-esophageal reflux disease without esophagitis; R11.2 Nausea with vomiting, unspecified; T41.295A Adverse effect of other general anesthetics, initial encounter
CPT/HCPCS: 72050; 80048; 81003; 82728; 83540; 83735; 84100; 85025; 87086; 88304; 97116; 97161; 97530; C9113; J0690; J1100; J1170; J2250; J2405; J2765; J2916; J3010; J3480; J7050; J7120